=== PATIENT | female | born 1935 | race Caucasian/White ===

== ENCOUNTER 2019-07-13 13:29 | Inpatient (IN) | payer MEDICARE ==
--- NOTE | 2019-07-13 15:57 | HP ---
PRIMARY CARE PHYSICIAN: Ishan Carlton MD REASON FOR ADMISSION: Transferred from [facility] for sepsis, pneumonia, and urinary tract infection. HISTORY OF PRESENT ILLNESS: An 84-year-old female who has underlying history of hypertension and COPD, who was initially evaluated at [facility]. The patient reports that for last week or two, she was gradually feeling weakness. The patient also noticed that at home her pulse was rapid and blood pressure was low. She was becoming more and more weak and that is why she decided to go to emergency room for evaluation. The patient does have right-sided lower chest and upper abdominal discomfort, which is pleuritic in nature. The patient denies any cough. She denies any shortness of breath. She does not have any urinary tract infection symptoms, though urinalysis at [facility] consistent with UTI. At [facility], the patient's oxygen saturation was low and she was requiring oxygen to maintain normal saturation. Initially, she was tachycardic as well as she was having high-grade fever with T-maximum 102. At [facility], the patient was treated with aspirin, Tylenol, Zosyn, Levaquin and some IV fluid. Her chest x-ray showed right lower lobe infiltration. Her routine blood test showed leukocytosis with left shift with bandemia and her creatinine was also elevated and her troponin was also elevated. The patient is being admitted to telemetry floor as she has responded to treatment, and now she is normotensive and her pulse is under control. The patient is well oriented. Lately, the patient was becoming more and more weak. Before that, the patient used to do all routine activities by herself. ALLERGIES: ALBUTEROL, MAKING HER HEART RATE GOES FAST AND SHE DEVELOPS ATRIAL FIBRILLATION; LISINOPRIL. PAST MEDICAL HISTORY: Paroxysmal atrial fibrillation, hypertension, COPD. PAST SURGICAL HISTORY: Appendicectomy, tubal ligation. PAST PSYCHIATRIC HISTORY: Reviewed and negative. FAMILY HISTORY: No strong family history of premature coronary artery disease, stroke, or cancer. CURRENT HOME MEDICATIONS: 1. Bisoprolol with hydrochlorothiazide 1 tablet p.o. daily. 2. Hydrochlorothiazide 25 mg p.o. daily. EMERGENCY ROOM COURSE: The patient received aspirin 4 tablets, Tylenol 1 g, Zosyn 4.5 g, Levaquin 750 mg, and IV fluid. REVIEW OF SYSTEMS: CONSTITUTIONAL: Negative for weight loss or gain, ability to conduct usual activities. SKIN: Negative for rash, itching. EYES: Negative for double vision, pain. ENT/MOUTH: Negative for nose bleeding, neck stiffness, pain, tenderness. CARDIOVASCULAR: Negative for palpitations, dyspnea on exertion, orthopnea. RESPIRATORY: Negative for shortness of breath, wheezing, cough, hemoptysis, fever or night sweats. GASTROINTESTINAL: Negative for poor appetite, abdominal pain, heartburn, nausea , vomiting, constipation, or diarrhea. GENITOURINARY: Negative for urgency, frequency, dysuria, nocturia. MUSCULOSKELETAL: Negative for pain, swelling. NEUROLOGIC/PSYCHIATRIC: Negative for anxiety, depression. ALLERGY/IMMUNOLOGIC: Negative for skin rash, bleeding tendency. Please see my HPI for pertinent positives and negative. All other review of systems reviewed and negative except as mentioned in HPI. SOCIAL HISTORY: No smoking, no alcohol or drug abuse PHYSICAL EXAMINATION: VITAL SIGNS: Currently, blood pressure 129/52, pulse 100, respiratory rate 22, temperature 99.1, saturation 94% on room air, weight 82.3 kg. GENERAL: The patient is currently alert, awake, appears weak. No obvious acute distress. HEENT: Head; normocephalic, atraumatic. Eyes; pupils round, reactive to light. Extraocular muscle intact. ENT, oropharynx within normal limits. Moist mucous membranes. No oral lesion. No pharyngeal erythema. No exudate. NECK: Supple. No JVD. No thyromegaly. No carotid bruit. No jugular venous distention. LUNGS: Right lower lobe rales noted. No wheezing. No rhonchi. No accessory muscles of respiration in use. CARDIAC: S1 and S2 regular. No murmur. No gallop. No rub. ABDOMEN: Obesity present. Bowel sounds present. Nontender. Nondistended. No organomegaly. No mass. No suprapubic tenderness. BACK: Unremarkable. No CVA tenderness. EXTREMITIES: Upper extremities, passive movement of all joints are normal. Lower extremities, no edema. Good distal pulsation. SKIN: No skin rash. HEMATOLOGICAL SYSTEM: No lymphadenopathy. NEUROLOGIC: Nonfocal examination. SIGNIFICANT LABORATORY DATA: CBC; WBC 28.3, hemoglobin 14.2, platelet 275 with bandemia. BMP; sodium 136, potassium 3.9, chloride 93, anion gap 17, BUN 25, creatinine 1.79, glucose 117, calcium 9.4. Lactic acid 2.2. LFT; AST 15, ALT 8 , alkaline phosphatase 84, albumin 3.6. Lipase 12. BNP 357 to 35.8. CK-MB 1.1, troponin 0.048. Urinalysis consistent with leukocyte esterase negative, but nitrite positive and bacteria 4+. Chest x-ray based on my review consistent with right lower lobe infiltration. EKG is showing normal sinus rhythm without any acute ischemic changes. ASSESSMENT AND PLAN: 1. Sepsis with acute organ dysfunction with associated acute hypoxic respiratory failure and acute on chronic kidney failure. Source of infection is pneumonia as well as urinary tract infection. The patient is given appropriate IV fluid and appropriate antibiotic therapy at other emergency room. The patient will require admission in the hospital on telemetry floor. We will continue with broad- spectrum antibiotic therapy. We will give her gentle IV fluid and watch for any fluid overload. 2. Acute on chronic kidney failure, baseline chronic kidney disease stage 3. We will continue with normal saline at 70 mL per hour for 1 L and we will repeat BMP tomorrow. We will avoid nephrotoxin agent. Most likely related with sepsis. 3. Right lower lobe community-acquired pneumonia. The patient will be given Zosyn and levofloxacin to cover typical/atypical bacteria as well as anaerobes. We will continue Mucinex 600 mg twice daily. 4. Urinary tract infection. Nitrite positive, but leukocyte esterase negative. We will follow up on urine culture results. The patient is already on broad- spectrum antibiotic therapy with Zosyn and Levaquin. 5. Chronic obstructive pulmonary disease without any exacerbation. This patient is not tolerating albuterol because of heart racing and that is why we will use Pulmicort nebulization twice daily p.r.n. basis. 6. Hypertension, currently low blood pressure and that is why we will hold on antihypertensive medication. 7. Elevated troponin. We will do serial cardiac enzyme x3 to rule out acute coronary syndrome. This is demand ischemia from sepsis. 8. Elevated BNP, likely diastolic heart failure. We will obtain echocardiography during this admission. 9. Obesity with body mass index 35 to 40. Dietary education given. Weight loss education given. 10. Physical deconditioning. The patient will need Physical Therapy and Occupational Therapy while in the hospital. 11. Deep venous thrombosis prophylaxis, heparin 5000 units subcu twice daily. 12. Gastrointestinal prophylaxis, Pepcid 20 mg p.o. b.i.d. CODE STATUS: The patient is DNR. Discussed with the patient and family member at bedside, and the patient expressed her wish to be a DNR. Job ID: [id number] MTDD
[2019-07-13] MEDS ORDERED: Metoclopramide HCl 10 MG/2 ML VIAL IVP PRN (17:22)
[2019-07-13] MEDS ORDERED: Cepastat Lozenges 1 LOZ PO PRN (17:22)
[2019-07-13] MEDS ORDERED: Senokot S 8.6-50 MG TAB PO PRN (17:22)
[2019-07-13] MEDS ORDERED: Bisacodyl 10 MG SUPP PR PRN (17:22)
[2019-07-13] MEDS ORDERED: Diabetic Tussin 200 MG/10 ML UDCUP PO PRN (17:22)
[2019-07-13] MEDS ORDERED: Loratadine 10 MG TAB PO PRN (17:22)
[2019-07-13] MEDS ORDERED: Artificial Tears 18 DROP/0.9 ML EA EYE PRN (17:22)
[2019-07-13] MEDS ORDERED: Zolpidem Tartrate 5 MG TAB PO PRN (17:22)
[2019-07-13] MEDS ORDERED: Sodium Chloride 0.65% Nasal 44 ML BOT EA NARE PRN (17:22)
[2019-07-13] MEDS ORDERED: Calcium Carbonate 500 MG ChewTAB PO PRN (17:22)
[2019-07-13] MEDS: Sodium Chloride 0.9% 1,000 ML IV SCH (18:03)
[2019-07-13] MEDS: Piperacillin/Tazobactam 3.375 GM in Sodium Chloride 0.9% 100 ML IVPB SCH ×2 (18:04→23:45)
[2019-07-13 18:35] LABS: Troponin I Less than 0.010 ng/mL (< 0.028)
[2019-07-13] MEDS: Budesonide 0.5 MG/2 ML NEB INH SCH (18:38)
[2019-07-13] MEDS: guaiFENesin ER 600 MG TAB PO SCH (20:50)
[2019-07-13] MEDS: Heparin 5,000 UNITS/ML VIAL SC SCH (20:53)
[2019-07-13] MEDS ORDERED: Famotidine 20 MG TAB PO SCH (21:00)
[2019-07-14] MEDS: Piperacillin/Tazobactam 3.375 GM in Sodium Chloride 0.9% 100 ML IVPB SCH ×3 (05:01→18:17)
[2019-07-14 05:34] LABS: #Lymphocytes 1.5 thou/uL (1.20-3.40); #Neutrophils 15.8 thou/uL (1.40-6.50); %Basophils 0.1 % (0.0-1.0); %Eosinophils 0.2 % (0.0-10.0); %Monocytes 5.2 % (0.0-10.0); %Neutrophils 86.5 % (42.0-75.0); Hemoglobin 11.9 g/dL (12.0-16.0); Mean Corpuscular HGB CONC 32.3 g/dL (32.0-36.0); Mean Corpuscular Hemoglobin 28.8 pg (27.0-31.0); Mean Corpuscular Volume 89.3 fL (78.0-98.0); Mean Platelet Volume 7.5 fL (7.4-10.4); Platelet Count 213 thou/uL (130-400); RBC Distribution Width 12.3 % (11.5-14.5); Red Blood Cell (RBC) Count 4.14 mill/uL (4.20-5.40); White Blood Cell (WBC) Count 18.3 thou/uL (4.8-10.8)
[2019-07-14 06:01] LABS: ALT (SGPT) 7 U/L (8-55); AST (SGOT) 17 U/L (5-34); Albumin 2.9 g/dL (3.4-4.8); Alkaline Phosphatase 72 U/L (40-110); Anion Gap 12 mmol/L (10-20); BUN (Urea Nitrogen) 27 mg/dL (9.8-20.1); Bilirubin, Total 0.5 mg/dL (0.2-1.2); Calc. Creatinine Clearance 35 mL/min (70-130); Calcium 8.1 mg/dL (7.8-10.44); Carbon Dioxide 27 mmol/L (23-31); Chloride 101 mmol/L (98-107); Estimated GFR-MDRD 32; Globulin 3.1 g/dL (2.4-3.5); Glucose 134 mg/dL (83-110); Potassium 3.1 mmol/L (3.5-5.1); Sodium 137 mmol/L (136-145)
[2019-07-14] MEDS ORDERED: Potassium Chloride 20 MEQ TAB PO SCH (09:00)
[2019-07-14] MEDS: Heparin 5,000 UNITS/ML VIAL SC SCH ×3 (09:56→21:01)
[2019-07-14] MEDS: Saccharomyces boulardii 250 MG CAP PO SCH (09:56)
[2019-07-14] MEDS: Aspirin Chewable 81 MG TAB PO SCH (09:56)
[2019-07-14] MEDS: Famotidine 20 MG TAB PO SCH (09:56)
[2019-07-14] MEDS: guaiFENesin ER 600 MG TAB PO SCH ×2 (09:56→21:01)
[2019-07-14] MEDS: Sodium Chloride 0.9% 1,000 ML IV SCH (09:57)
[2019-07-14] MEDS: Budesonide 0.5 MG/2 ML NEB INH SCH ×2 (10:27→18:55)
--- NOTE | 2019-07-14 12:16 | PDOC.HOSPP ---
- Subjective Encounter Date: 07/14/19 Encounter Time: 07:30 Subjective: Patient seen and examined. No new complaints. No overnight events - Objective Vital Signs & Weight: Vital Signs (12 hours) Temp Pulse Resp BP Pulse Ox 07/14/19 11:56 97.5 F L 103 H 16 139/60 92 L 07/14/19 10:27 93 16 07/14/19 08:17 98.1 F 98 16 139/63 98 07/14/19 03:00 98.6 F 91 16 121/59 L 92 L Weight Weight 178 lb 3.2 oz I&O: 07/13/19 07/14/19 07/15/19 06:59 06:59 06:59 Intake Total 1364 Balance 1364 Result Diagrams: 07/14/19 04:20 07/14/19 04:20 EKG Reviewed by me: Yes Hospitalist ROS - Review of Systems Constitutional: denies: fever, chills, sweats, weakness, malaise, other Eyes: denies: pain, vision change, conjunctivae inflammation, eyelid inflammation, redness, other ENT: denies: ear pain, ear discharge, nose pain, nose discharge, nose congestion , mouth pain, mouth swelling, throat pain, throat swelling, other Respiratory: denies: cough, dry, shortness of breath, hemoptysis, SOB with excertion, pleuritic pain, sputum, wheezing, other Cardiovascular: denies: chest pain, palpitations, orthopnea, paroxysmal noc. dyspnea, edema, light headedness, other Gastrointestinal: denies: nausea, vomiting, abdominal pain, diarrhea, constipation, melena, hematochezia, other Genitourinary: denies: dysuria, frequency, incontinence, hematuria, retention, other Musculoskeletal: denies: neck pain, shoulder pain, arm pain, back pain, hand pain, leg pain, foot pain, other Skin: denies: rash, lesions, annie, bruising, other - Medication Medications: Active Medications Generic Name Dose Route Start Last Admin Trade Name Freq PRN Reason Stop Dose Admin Aspirin 81 mg 07/14/19 09:00 07/14/19 09:56 Aspirin Chewable PO 81 mg DAILY SAMANTHA Administration Budesonide 0.5 mg 07/13/19 18:30 07/14/19 10:27 Pulmicort Neb Solution INH 0.5 mg BID-RT SAMANTHA Administration Famotidine 20 mg 07/14/19 09:00 07/14/19 09:56 Pepcid PO 20 mg DAILY SAMANTHA Administration Guaifenesin 600 mg 07/13/19 21:00 07/14/19 09:56 Mucinex PO 600 mg Q12HR SAMANTHA Administration Heparin Sodium (Porcine) 5,000 units 07/13/19 21:00 07/14/19 09:56 Heparin SC Not Given TID SAMANTHA Piperacillin Sod/Tazobactam 100 mls @ 200 mls/hr 07/13/19 18:00 07/14/19 05: 01 Sod 3.375 gm/ Sodium Chloride IVPB 100 mls Q6HR SAMANTHA Administration Saccharomyces Boulardii 250 mg 07/14/19 09:00 07/14/19 09:56 Florastor PO 250 mg DAILY SAMANTHA Administration - Exam General Appearance: NAD, awake alert Eye: PERRL, anicteric sclera ENT: normocephalic atraumatic, no oropharyngeal lesions Neck: supple, symmetric, no JVD, no thyromegaly Heart: RRR, no murmur, no gallops, no rubs Respiratory: CTAB, no wheezes, no rales, no ronchi Gastrointestinal: soft, non-tender, non-distended, normal bowel sounds Extremities: no cyanosis, no clubbing Skin: normal turgor, no lesions Neurological: cranial nerve grossly intact, no focal deficits Musculoskeletal: normal tone, normal strength Psychiatric: normal affect, normal behavior Hosp A/P (1) Acute worsening of stage 3 chronic kidney disease Code(s): N18.3 - CHRONIC KIDNEY DISEASE, STAGE 3 (MODERATE) Status: Acute (2) Pneumonia Code(s): J18.9 - PNEUMONIA, UNSPECIFIED ORGANISM Status: Acute (3) Sepsis Code(s): A41.9 - SEPSIS, UNSPECIFIED ORGANISM Status: Acute Qualifiers: Sepsis acute organ dysfunction status: with acute organ dysfunction Severe sepsis acute organ dysfunction type: acute renal failure Severe sepsis shock status: without septic shock (4) UTI (urinary tract infection) Status: Acute Qualifiers: Urinary tract infection type: acute cystitis (5) PAF (paroxysmal atrial fibrillation) Code(s): I48.0 - PAROXYSMAL ATRIAL FIBRILLATION Status: Chronic (6) COPD (chronic obstructive pulmonary disease) Status: Chronic (7) Hypertension Code(s): I10 - ESSENTIAL (PRIMARY) HYPERTENSION Status: Chronic (8) Hypokalemia Code(s): E87.6 - HYPOKALEMIA Status: Acute - Plan old records reviewed/req, continue antibiotics, respiratory therapy 07/14/19 continue zosyn and levaquin follow on culture result medication reviewed as above symptomatic treatment continue PT pt has improvement replace potassium repeat labs tomorrow echo result pending DC IVF
[2019-07-14] MEDS ORDERED: FLU VACC TS2019-20(65YR UP)/PF 180 MCG/0.5 ML SYRINGE IM ONE (21:00)
[2019-07-14] MEDS ORDERED: Prevnar 13-Val Conj/PF 0.5 ML SYRINGE IM ONE (21:00)
[2019-07-15] MEDS: Piperacillin/Tazobactam 3.375 GM in Sodium Chloride 0.9% 100 ML IVPB SCH (00:04)
[2019-07-15 02:17] LABS: Magnesium 1.8 mg/dL (1.6-2.6); Potassium 3.3 mmol/L (3.5-5.1)
[2019-07-15 02:39] LABS: Troponin I Less than 0.010 ng/mL (< 0.028)
[2019-07-15] MEDS ORDERED: Morphine 2 MG/ML SYRINGE SLOW IVP SCH (04:00)
[2019-07-15] MEDS ORDERED: Piperacillin/Tazobactam 3.375 GM in Sodium Chloride 0.9% 100 ML IVPB SCH (06:00)
[2019-07-15] MEDS: Budesonide 0.5 MG/2 ML NEB INH SCH ×2 (07:27→20:21)
[2019-07-15] MEDS ORDERED: Potassium Chloride 20 MEQ TAB PO SCH (07:45)
[2019-07-15] MEDS: Aspirin Chewable 81 MG TAB PO SCH (08:20)
[2019-07-15] MEDS: Saccharomyces boulardii 250 MG CAP PO SCH (08:20)
[2019-07-15] MEDS: Famotidine 20 MG TAB PO SCH (08:20)
[2019-07-15] MEDS: Heparin 5,000 UNITS/ML VIAL SC SCH ×3 (08:20→20:41)
[2019-07-15] MEDS: guaiFENesin ER 600 MG TAB PO SCH ×2 (08:21→20:41)
[2019-07-15 09:30] LABS: Troponin I Less than 0.010 ng/mL (< 0.028)
[2019-07-15] MEDS: cefTRIAXone\\ROCEPHIN 1 GM in Sodium Chloride 0.9% 100 ML IVPB SCH (10:06)
[2019-07-15] MEDS: Bisoprolol Fumarate/HCTZ 5 mg/6.25 mg Tablet PO SCH (10:25)
--- NOTE | 2019-07-15 10:54 | PDOC.HOSPP ---
- Subjective Encounter Date: 07/15/19 Encounter Time: 08:00 Subjective: last night she wake with feeling of chest tightness, dyspnea, had PAT and this morning as well. Patient seen and examined. - Objective Vital Signs & Weight: Vital Signs (12 hours) Temp Pulse Resp BP BP Pulse Ox 07/15/19 08:10 97.2 F L 97 17 159/69 H 94 L 07/15/19 07:27 91 18 100 07/15/19 03:20 101 H 20 131/60 92 L 07/14/19 23:31 98.6 F 94 18 165/70 H 94 L Weight Weight 181 lb 14.4 oz I&O: 07/14/19 07/15/19 07/16/19 06:59 06:59 06:59 Intake Total 1364 1760 Output Total 600 Balance 1364 1160 Result Diagrams: 07/14/19 04:20 07/15/19 01:55 EKG Reviewed by me: Yes (PAT) Hospitalist ROS - Review of Systems Constitutional: denies: fever, chills, sweats, weakness, malaise, other Eyes: denies: pain, vision change, conjunctivae inflammation, eyelid inflammation, redness, other ENT: denies: ear pain, ear discharge, nose pain, nose discharge, nose congestion , mouth pain, mouth swelling, throat pain, throat swelling, other Respiratory: denies: cough, dry, shortness of breath, hemoptysis, SOB with excertion, pleuritic pain, sputum, wheezing, other Cardiovascular: denies: chest pain, palpitations, orthopnea, paroxysmal noc. dyspnea, edema, light headedness, other Gastrointestinal: denies: nausea, vomiting, abdominal pain, diarrhea, constipation, melena, hematochezia, other Genitourinary: denies: dysuria, frequency, incontinence, hematuria, retention, other Musculoskeletal: denies: neck pain, shoulder pain, arm pain, back pain, hand pain, leg pain, foot pain, other Skin: denies: rash, lesions, annie, bruising, other - Medication Medications: Active Medications Generic Name Dose Route Start Last Admin Trade Name Freq PRN Reason Stop Dose Admin Aspirin 81 mg 07/14/19 09:00 07/15/19 08:20 Aspirin Chewable PO 81 mg DAILY SAMANTHA Administration Bisoprolol Fumarate/HCTZ 1 tab 07/15/19 09:00 07/15/19 10:25 Ziac 5-6.25 PO 1 tab DAILY SAMANTHA Administration Budesonide 0.5 mg 07/13/19 18:30 07/15/19 07:27 Pulmicort Neb Solution INH 0.5 mg BID-RT SAMANTHA Administration Famotidine 20 mg 07/14/19 09:00 07/15/19 08:20 Pepcid PO 20 mg DAILY SAMANTHA Administration Guaifenesin 600 mg 07/13/19 21:00 07/15/19 08:21 Mucinex PO Not Given Q12HR SAMANTHA Heparin Sodium (Porcine) 5,000 units 07/13/19 21:00 07/15/19 08:20 Heparin SC Not Given TID SAMANTHA Levofloxacin 750 mg/ Device 150 mls @ 100 mls/hr 07/15/19 09:00 07/15/19 10: 05 IVPB 150 mls Q2D SAMANTHA Administration Ceftriaxone Sodium 1 gm/ 100 mls @ 200 mls/hr 07/15/19 09:00 07/15/19 10:06 Sodium Chloride IVPB 100 mls Q24HR SAMANTHA Administration Saccharomyces Boulardii 250 mg 07/14/19 09:00 07/15/19 08:20 Florastor PO 250 mg DAILY SAMANTHA Administration Sodium Chloride 10 ml 07/15/19 09:00 07/15/19 10:26 Flush - Normal Saline IVF 10 ml Q12HR SAMANTHA Administration - Exam General Appearance: NAD, awake alert Eye: PERRL, anicteric sclera ENT: normocephalic atraumatic, no oropharyngeal lesions Neck: supple, symmetric, no JVD, no thyromegaly Heart: RRR, no murmur, no gallops, no rubs, normal peripheral pulses Respiratory: CTAB, no wheezes, no rales, no ronchi Gastrointestinal: soft, non-tender, non-distended, normal bowel sounds Extremities: no cyanosis, no clubbing, no edema Skin: normal turgor, no lesions, no rashes Neurological: cranial nerve grossly intact, no focal deficits Musculoskeletal: normal tone, normal strength Psychiatric: normal affect, normal behavior Hosp A/P (1) Acute worsening of stage 3 chronic kidney disease Code(s): N18.3 - CHRONIC KIDNEY DISEASE, STAGE 3 (MODERATE) Status: Acute (2) Pneumonia Code(s): J18.9 - PNEUMONIA, UNSPECIFIED ORGANISM Status: Acute Qualifiers: Pneumonia type: due to unspecified organism (3) Sepsis Code(s): A41.9 - SEPSIS, UNSPECIFIED ORGANISM Status: Resolved Qualifiers: Sepsis acute organ dysfunction status: with acute organ dysfunction Severe sepsis acute organ dysfunction type: acute renal failure Severe sepsis shock status: without septic shock (4) UTI (urinary tract infection) Status: Acute Qualifiers: Urinary tract infection type: acute cystitis (5) PAF (paroxysmal atrial fibrillation) Code(s): I48.0 - PAROXYSMAL ATRIAL FIBRILLATION Status: Chronic (6) COPD (chronic obstructive pulmonary disease) Status: Chronic (7) Hypertension Code(s): I10 - ESSENTIAL (PRIMARY) HYPERTENSION Status: Chronic (8) Hypokalemia Code(s): E87.6 - HYPOKALEMIA Status: Acute (9) PAT (paroxysmal atrial tachycardia) Status: Acute - Plan old records reviewed/req, plan discussed w/ family, continue antibiotics 07/14/19 continue zosyn and levaquin follow on culture result medication reviewed as above symptomatic treatment continue PT pt has improvement replace potassium repeat labs tomorrow echo result pending DC IVF 07/15 regarding last night episode of pt chest pain and dyspnea and PAT, will consult cardiology will replace potassium will repeat labs tomorrow with mag, bmp, cbc echo is unremarkable based on culture result, will change zosyn to rocephin today, on discharge only levaquin
--- NOTE | 2019-07-15 15:42 | EKG ---
Test Reason : Blood Pressure : / mmHG Vent. Rate : 103 BPM Atrial Rate : 103 BPM P-R Int : 156 ms QRS Dur : 076 ms QT Int : 362 ms P-R-T Axes : 081 068 046 degrees QTc Int : 474 ms Sinus tachycardia with Possible Premature atrial complexes with Abberant conduction and Premature bao tricular complexes or Fusion complexes Otherwise normal ECG Confirmed by BECCA LLOYD ([id number]) on 07/15/2019 3:41:32 PM Referred By: ANTONIA Confirmed By:BECCA LLOYD
[2019-07-15] MEDS: hydrALAZINE 20 MG/ML VIAL SLOW IVP PRN (17:09)
--- NOTE | 2019-07-15 18:13 | CON ---
DATE OF CONSULTATION: REASON FOR CONSULTATION: PAT. HISTORY OF PRESENT ILLNESS: Ms. Hooks is an 84-year-old woman, who recently presented with pneumonia. She has had intermittent fevers and chills. She did have an episode of PAT, diagnosed. She states she did feel it. She has these intermittent episodes while at home. She did have an echo with Doppler performed over the weekend with LVEF of 60% to 65%. She does have a history of tobacco abuse with COPD. PAST MEDICAL HISTORY: Hypertension, COPD, paroxysmal atrial fibrillation, appendectomy, and BTL. HOME MEDICATIONS: Bisoprolol/hydrochlorothiazide. SOCIAL HISTORY: No current tobacco or alcohol use. Remote tobacco history. REVIEW OF SYSTEMS: A 10-point review of systems is reviewed and as above, otherwise negative. PHYSICAL EXAMINATION: GENERAL: Patient is a pleasant woman who is in no acute distress. The patient appears their stated age. VITAL SIGNS: Blood pressure 197/84, pulse 78, temperature 99. NEUROLOGIC: The patient is alert and oriented x3 with no focal neurologic deficits. HEENT: Sclerae without icterus. Mouth has moist mucous membranes with normal pallor. NECK: No JVD. Carotid upstroke brisk. No bruits bilaterally. LUNGS: Clear to auscultation with unlabored respirations. BACK: No scoliosis or kyphosis. CARDIAC: Regular rate and rhythm with normal S1 and S2. No S3 or S4 noted. No significant rubs, murmurs, thrills, or gallops noted throughout the precordium. PMI is not displaced. There is no parasternal heave. ABDOMEN: Soft, nontender, nondistended. No peritoneal signs present. No hepatosplenomegaly. No abnormal striae. EXTREMITIES: 2+ femoral and 2+ dorsalis pedis pulses. No cyanosis, clubbing, or edema. SKIN: No gross abnormalities. PERTINENT LABORATORY DATA: Hemoglobin 11.9. Creatinine 1.56. IMPRESSION: 1. Paroxysmal atrial tachycardia. 2. Chronic obstructive pulmonary disease. 3. Recent pneumonia. 4. Diastolic dysfunction. RECOMMENDATIONS: At this point, the patient does have one episode of palpitations per week. She is currently on bisoprolol. We will add low-dose Cardizem. Would also consider adding digoxin. Given that she only has one episode every week to every other week, would treat conservatively. Otherwise, I have no further recommendations. Job ID: [id number]
[2019-07-16 05:56] LABS: #Basophils 0.1 thou/uL (0.0-0.2); #Eosinphils 0.2 thou/uL (0.0-0.7); #Lymphocytes 1.6 thou/uL (1.20-3.40); #Monocytes 0.8 thou/uL (0.11-0.59); #Neutrophils 6.5 thou/uL (1.40-6.50); %Basophils 0.6 % (0.0-1.0); %Eosinophils 2.2 % (0.0-10.0); %Lymphocytes 17.6 % (21.0-51.0); %Monocytes 8.4 % (0.0-10.0); %Neutrophils 71.2 % (42.0-75.0); Hemoglobin 11.2 g/dL (12.0-16.0); Mean Corpuscular HGB CONC 30.8 g/dL (32.0-36.0); Mean Corpuscular Hemoglobin 27.5 pg (27.0-31.0); Mean Corpuscular Volume 89.4 fL (78.0-98.0); Mean Platelet Volume 6.9 fL (7.4-10.4); Platelet Count 239 thou/uL (130-400); RBC Distribution Width 12.3 % (11.5-14.5); Red Blood Cell (RBC) Count 4.08 mill/uL (4.20-5.40); White Blood Cell (WBC) Count 9.2 thou/uL (4.8-10.8)
[2019-07-16 06:19] LABS: Anion Gap 11 mmol/L (10-20); BUN (Urea Nitrogen) 18 mg/dL (9.8-20.1); Calc. Creatinine Clearance 47 mL/min (70-130); Calcium 8.7 mg/dL (7.8-10.44); Carbon Dioxide 31 mmol/L (23-31); Chloride 104 mmol/L (98-107); Estimated GFR-MDRD 43; Glucose 87 mg/dL (83-110); Magnesium 1.9 mg/dL (1.6-2.6); Potassium 3.8 mmol/L (3.5-5.1); Sodium 142 mmol/L (136-145)
[2019-07-16] MEDS: Budesonide 0.5 MG/2 ML NEB INH SCH ×2 (06:34→18:33)
[2019-07-16] MEDS: Ipratropium Bromide 2.5 ml Neb NEB PRN (06:35)
[2019-07-16] MEDS: hydrALAZINE 20 MG/ML VIAL SLOW IVP PRN (07:01)
[2019-07-16] MEDS: Famotidine 20 MG TAB PO SCH (08:46)
[2019-07-16] MEDS: Saccharomyces boulardii 250 MG CAP PO SCH (08:47)
[2019-07-16] MEDS: Bisoprolol Fumarate/HCTZ 5 mg/6.25 mg Tablet PO SCH (08:47)
[2019-07-16] MEDS: guaiFENesin ER 600 MG TAB PO SCH ×2 (08:47→20:15)
[2019-07-16] MEDS: Aspirin Chewable 81 MG TAB PO SCH (08:47)
[2019-07-16] MEDS: Heparin 5,000 UNITS/ML VIAL SC SCH ×3 (08:48→20:15)
[2019-07-16] MEDS: cefTRIAXone\\ROCEPHIN 1 GM in Sodium Chloride 0.9% 100 ML IVPB SCH (09:46)
--- NOTE | 2019-07-16 10:01 | PDOC.HOSPP ---
- Subjective Encounter Date: 07/16/19 Encounter Time: 07:45 Subjective: Patient seen and examined. No new complaints. No overnight events pt was anxious today as her blood pressure was high and she had similar feeling as she had previous night - Objective Vital Signs & Weight: Vital Signs (12 hours) Temp Pulse Resp BP BP Pulse Ox 07/16/19 08:49 95 17 150/67 H 07/16/19 07:06 95 07/16/19 07:00 98.1 F 86 16 186/75 H 95 07/16/19 06:35 90 16 92 L 07/16/19 06:34 90 16 92 L 07/16/19 04:00 99.0 F 89 18 174/75 H 92 L Weight Admit Weight 180 lb 1.6 oz Weight 183 lb 1.6 oz I&O: 07/15/19 07/16/19 07/17/19 06:59 06:59 06:59 Intake Total 1760 Output Total 600 Balance 1160 Result Diagrams: 07/16/19 05:42 07/16/19 05:42 EKG Reviewed by me: Yes Hospitalist ROS - Review of Systems Eyes: denies: pain, vision change, conjunctivae inflammation, eyelid inflammation, redness, other ENT: denies: ear pain, ear discharge, nose pain, nose discharge, nose congestion , mouth pain, mouth swelling, throat pain, throat swelling, other Respiratory: denies: cough, dry, shortness of breath, hemoptysis, SOB with excertion, pleuritic pain, sputum, wheezing, other Cardiovascular: denies: chest pain, palpitations, orthopnea, paroxysmal noc. dyspnea, edema, light headedness, other Gastrointestinal: denies: nausea, vomiting, abdominal pain, diarrhea, constipation, melena, hematochezia, other Genitourinary: denies: dysuria, frequency, incontinence, hematuria, retention, other Musculoskeletal: denies: neck pain, shoulder pain, arm pain, back pain, hand pain, leg pain, foot pain, other Skin: denies: rash, lesions, annie, bruising, other - Medication Medications: Active Medications Generic Name Dose Route Start Last Admin Trade Name Freq PRN Reason Stop Dose Admin Aspirin 81 mg 07/14/19 09:00 07/16/19 08:47 Aspirin Chewable PO 81 mg DAILY SAMANTHA Administration Bisoprolol Fumarate/HCTZ 1 tab 07/15/19 09:00 07/16/19 08:47 [place] 5-6.25 PO 1 tab DAILY SAMANTHA Administration Budesonide 0.5 mg 07/13/19 18:30 07/16/19 06:34 Pulmicort Neb Solution INH 0.5 mg BID-RT SAMANTHA Administration Diltiazem HCl 180 mg 07/16/19 09:00 07/16/19 08:46 Cardizem Cd PO 180 mg DAILY SAMANTHA Administration Famotidine 20 mg 07/14/19 09:00 07/16/19 08:46 Pepcid PO 20 mg DAILY SAMANTHA Administration Guaifenesin 600 mg 07/13/19 21:00 07/16/19 08:47 Mucinex PO 600 mg Q12HR SAMANTHA Administration Heparin Sodium (Porcine) 5,000 units 07/13/19 21:00 07/16/19 08:48 Heparin SC Not Given TID SAMANTHA Hydralazine HCl 10 mg 07/13/19 17:22 07/16/19 07:01 Apresoline SLOW IVP 10 mg Q4H PRN Administration SBP > 180 and HR < 70 Ipratropium [place] 2.5 ml 07/13/19 17:22 07/16/19 06:35 Atrovent NEB 2.5 ml [id number] PRN Administration SOB &/or Wheezing Saccharomyces Boulardii 250 mg 07/14/19 09:00 07/16/19 08:47 Florastor PO 250 mg DAILY SAMANTHA Administration Sodium Chloride 10 ml 07/15/19 09:00 07/16/19 08:49 Flush - Normal Saline IVF 10 ml Q12HR SAMANTHA Administration Hosp A/P (1) Acute worsening of stage 3 chronic kidney disease Code(s): N18.3 - CHRONIC KIDNEY DISEASE, STAGE 3 (MODERATE) Status: Resolved (2) Pneumonia Code(s): J18.9 - PNEUMONIA, UNSPECIFIED ORGANISM Status: Acute Qualifiers: Pneumonia type: due to unspecified organism (3) Sepsis Code(s): A41.9 - SEPSIS, UNSPECIFIED ORGANISM Status: Resolved Qualifiers: Sepsis acute organ dysfunction status: with acute organ dysfunction Severe sepsis acute organ dysfunction type: acute renal failure Severe sepsis shock status: without septic shock (4) UTI (urinary tract infection) Status: Acute Qualifiers: Urinary tract infection type: acute cystitis (5) PAF (paroxysmal atrial fibrillation) Code(s): I48.0 - PAROXYSMAL ATRIAL FIBRILLATION Status: Chronic (6) COPD (chronic obstructive pulmonary disease) Status: Chronic (7) Hypertension Code(s): I10 - ESSENTIAL (PRIMARY) HYPERTENSION Status: Chronic (8) Hypokalemia Code(s): E87.6 - HYPOKALEMIA Status: Resolved (9) PAT (paroxysmal atrial tachycardia) Status: Acute - Plan old records reviewed/req, continue antibiotics 07/14/19 continue zosyn and levaquin follow on culture result medication reviewed as above symptomatic treatment continue PT pt has improvement replace potassium repeat labs tomorrow echo result pending DC IVF 07/15 regarding last night episode of pt chest pain and dyspnea and PAT, will consult cardiology will replace potassium will repeat labs tomorrow with mag, bmp, cbc echo is unremarkable based on culture result, will change zosyn to rocephin today, on discharge only levaquin 07/16/19 cardiology added keysha CHAUDHARY, her rate controlled will monitor her BP and adjust medication medication reviewed as above, symptomatic treatment will change antibiotic to levaquin 500 mg daily expecting discharge tomorrow
--- NOTE | 2019-07-16 17:13 | PRG ---
DATE OF SERVICE: 07/16/2019 SUBJECTIVE: Ms. Hooks is doing well. No current complaints. No recurrent episodes of tachycardia. OBJECTIVE: GENERAL: Patient is a pleasant woman, who is in no acute distress. The patient appears their stated age. VITAL SIGNS: Blood pressure 157/69, pulse 76, and temperature 98.6. NEUROLOGIC: The patient is alert and oriented x3 with no focal neurologic deficits. HEENT: Sclerae without icterus. Mouth has moist mucous membranes with normal pallor. NECK: No JVD. Carotid upstroke brisk. No bruits bilaterally. LUNGS: Clear to auscultation with unlabored respirations. BACK: No scoliosis or kyphosis. CARDIAC: Regular rate and rhythm with normal S1 and S2. No S3 or S4 noted. No significant rubs, murmurs, thrills, or gallops noted throughout the precordium. PMI is not displaced. There is no parasternal heave. ABDOMEN: Soft, nontender, nondistended. No peritoneal signs present. No hepatosplenomegaly. No abnormal striae. EXTREMITIES: 2+ femoral and 2+ dorsalis pedis pulses. No cyanosis, clubbing, or edema. SKIN: No gross abnormalities. DIAGNOSTIC DATA: Telemetry monitoring did show a short burst of PAC. IMPRESSION: 1. Premature atrial contractions. 2. Pneumonia. RECOMMENDATIONS: From a CV standpoint, continue calcium-channel blockade. She currently did not feel recent tachycardia. I would recommend low-dose calcium-channel jono at 120 mg one p.o. q.a.m. Otherwise, I will have no further recommendations. Plan is to follow up with me in 1 to 2 weeks. Please re-consult if needed. Job ID: [id number]
[2019-07-17] MEDS: hydrALAZINE 20 MG/ML VIAL SLOW IVP PRN (05:48)
[2019-07-17] MEDS: Budesonide 0.5 MG/2 ML NEB INH SCH ×2 (06:52→19:09)
[2019-07-17] MEDS: Aspirin Chewable 81 MG TAB PO SCH (08:06)
[2019-07-17] MEDS: Heparin 5,000 UNITS/ML VIAL SC SCH ×3 (08:06→21:38)
[2019-07-17] MEDS: Saccharomyces boulardii 250 MG CAP PO SCH (08:06)
[2019-07-17] MEDS: Famotidine 20 MG TAB PO SCH (08:06)
[2019-07-17] MEDS: Acetaminophen 325 MG TAB PO PRN (08:06)
[2019-07-17] MEDS: guaiFENesin ER 600 MG TAB PO SCH ×2 (08:06→21:37)
[2019-07-17] MEDS: Bisoprolol Fumarate/HCTZ 5 mg/6.25 mg Tablet PO SCH (08:07)
--- NOTE | 2019-07-17 09:40 | PDOC.HOSPP ---
- Subjective Encounter Date: 07/17/19 Encounter Time: 09:34 Subjective: anxious about BP swings, sob despite O2 - Objective Vital Signs & Weight: Vital Signs (12 hours) Temp Pulse Resp BP Pulse Ox 07/17/19 06:52 87 16 97 07/17/19 05:48 82 07/17/19 04:00 98.5 F 82 18 183/77 H 92 L 07/17/19 03:57 94 L Weight Admit Weight 180 lb 1.6 oz Weight 181 lb Result Diagrams: 07/16/19 05:42 07/16/19 05:42 Hospitalist ROS - Medication Medications: Active Medications Generic Name Dose Route Start Last Admin Trade Name Freq PRN Reason Stop Dose Admin Acetaminophen 650 mg 07/13/19 17:22 07/17/19 08:06 Tylenol PO 650 mg Q4H PRN Administration Headache/Fever/Mild Pain (1-3) Aspirin 81 mg 07/14/19 09:00 07/17/19 08:06 Aspirin Chewable PO 81 mg DAILY SAMANTHA Administration Bisoprolol Fumarate/HCTZ 1 tab 07/15/19 09:00 07/17/19 08:07 Ziac 5-6.25 PO 1 tab DAILY SAMANTHA Administration Budesonide 0.5 mg 07/13/19 18:30 07/17/19 06:52 Pulmicort Neb Solution INH 0.5 mg BID-RT SAMANTHA Administration Diltiazem HCl 180 mg 07/16/19 09:00 07/17/19 08:06 Cardizem Cd PO 180 mg DAILY SAMANTHA Administration Famotidine 20 mg 07/14/19 09:00 07/17/19 08:06 Pepcid PO 20 mg DAILY SAMANTHA Administration Guaifenesin 600 mg 07/13/19 21:00 07/17/19 08:06 Mucinex PO 600 mg Q12HR SAMANTHA Administration Heparin Sodium (Porcine) 5,000 units 07/13/19 21:00 07/17/19 08:06 Heparin SC Not Given TID SAMANTHA Hydralazine HCl 10 mg 07/13/19 17:22 07/17/19 05:48 Apresoline SLOW IVP 10 mg Q4H PRN Administration SBP > 180 and HR < 70 Levofloxacin 500 mg/ Device 100 mls @ 100 mls/hr 07/16/19 10:00 07/16/19 11: 15 IVPB 100 mls Q24HR SAMANTHA Administration Ipratropium [place] 2.5 ml 07/13/19 17:22 07/16/19 06:35 Atrovent NEB 2.5 ml [id number] PRN Administration SOB &/or Wheezing Saccharomyces Boulardii 250 mg 07/14/19 09:00 07/17/19 08:06 Florastor PO 250 mg DAILY SAMANTHA Administration Sodium Chloride 10 ml 07/15/19 09:00 07/17/19 08:07 Flush - Normal Saline IVF 10 ml Q12HR SAMANTHA Administration - Exam General Appearance: awake alert Neck: no JVD Heart: RRR, no murmur Respiratory: CTAB Gastrointestinal: soft, normal bowel sounds Extremities: no edema Hosp A/P (1) Pneumonia Code(s): J18.9 - PNEUMONIA, UNSPECIFIED ORGANISM Status: Acute Qualifiers: Pneumonia type: due to Pneumococcus Laterality: right Lung location: lower lobe of lung Qualified Code(s): J13 - Pneumonia due to Streptococcus pneumoniae (2) CKD (chronic kidney disease) stage 3, GFR 30-59 ml/min Code(s): N18.3 - CHRONIC KIDNEY DISEASE, STAGE 3 (MODERATE) Status: Chronic (3) UTI (urinary tract infection) Status: Acute Qualifiers: Urinary tract infection type: acute cystitis (4) COPD (chronic obstructive pulmonary disease) Status: Chronic Qualifiers: Emphysema type: unspecified (5) Hypertension Code(s): I10 - ESSENTIAL (PRIMARY) HYPERTENSION Status: Chronic Qualifiers: Hypertension type: essential hypertension Qualified Code(s): I10 - Essential (primary) hypertension (6) PAT (paroxysmal atrial tachycardia) Status: Chronic - Plan CXR hydralazine 25 tid levaquin po, DC iv
[2019-07-17] MEDS: HYDROcodone/Acetaminophen 5/325 mg Tablet PO PRN (15:08)
[2019-07-17] MEDS: hydrALAZINE 25 MG TAB PO SCH ×2 (15:08→21:37)
--- NOTE | 2019-07-17 15:37 | RAD ---
EXAM: Chest PA and lateral: HISTORY: Pneumonia follow-up COMPARISON: 07/13/2019 FINDINGS: Heart: Normal cardiac silhouette Aorta: Atherosclerosis Pulmonary vessels: Normal Costophrenic angles: Costophrenic angles are clear. Lungs: Worsening bibasilar opacification. Stable hyperinflation. Pneumothorax: No pneumothorax Osseous structures: No osseous abnormalities IMPRESSION: Worsening bibasilar opacification.
--- NOTE | 2019-07-17 17:17 | PDOC.EVN ---
Event Note - Event Note Event Note: cxr- adverse bilat basilar opacificetion. echo diastolic dysfcn. poss acute diastolic HF. trial diuresis, order BNP. loathe to get CT of chest with CKD 3.
[2019-07-17] MEDS ORDERED: Furosemide 40 MG/4 ML VIAL SLOW IVP SCH (17:30)
[2019-07-18] MEDS: hydrALAZINE 20 MG/ML VIAL SLOW IVP PRN (00:31)
[2019-07-18] MEDS: HYDROcodone/Acetaminophen 5/325 mg Tablet PO PRN (01:28)
[2019-07-18] MEDS: Budesonide 0.5 MG/2 ML NEB INH SCH ×2 (07:17→18:24)
[2019-07-18] MEDS: Saccharomyces boulardii 250 MG CAP PO SCH (08:56)
[2019-07-18] MEDS: Aspirin Chewable 81 MG TAB PO SCH (08:56)
[2019-07-18] MEDS: Famotidine 20 MG TAB PO SCH (08:56)
[2019-07-18] MEDS: guaiFENesin ER 600 MG TAB PO SCH ×2 (08:57→20:47)
[2019-07-18] MEDS: Bisoprolol Fumarate/HCTZ 5 mg/6.25 mg Tablet PO SCH (08:57)
[2019-07-18] MEDS: hydrALAZINE 25 MG TAB PO SCH ×3 (08:57→20:47)
[2019-07-18] MEDS: Heparin 5,000 UNITS/ML VIAL SC SCH ×3 (08:58→20:46)
[2019-07-18] MEDS ORDERED: hydrALAZINE 25 MG TAB PO SCH (13:00)
--- NOTE | 2019-07-18 13:09 | PDOC.HOSPP ---
- Subjective Encounter Date: 07/18/19 Encounter Time: 07:20 Subjective: Pt seen for followup re: acute diastolic CHF. Feels slightly better. SOBOE. - Objective Vital Signs & Weight: Vital Signs (12 hours) Temp Pulse Resp BP BP Pulse Ox 07/18/19 11:32 97.8 F 77 22 H 160/72 H 91 L 07/18/19 08:57 84 144/65 H 07/18/19 08:00 98.1 F 84 18 144/65 H 89 L 07/18/19 03:13 98.3 F 82 18 144/67 H 92 L Weight Admit Weight 180 lb 1.6 oz Weight 178 lb 6.4 oz I&O: 07/17/19 07/18/19 07/19/19 06:59 06:59 06:59 Intake Total 980 480 Balance 980 480 Result Diagrams: 07/16/19 05:42 07/16/19 05:42 Additional Labs: Labs and MARs reviewed by me EKG Reviewed by me: Yes (Tele: NSR) Hospitalist ROS - Review of Systems Respiratory: reports: cough, dry, SOB with excertion, other. denies: shortness of breath, hemoptysis, pleuritic pain, sputum, wheezing Cardiovascular: denies: chest pain, palpitations, orthopnea, paroxysmal noc. dyspnea, edema, light headedness - Medication Medications: Active Medications Generic Name Dose Route Start Last Admin Trade Name Freq PRN Reason Stop Dose Admin Acetaminophen 650 mg 07/13/19 17:22 07/17/19 08:06 Tylenol PO 650 mg Q4H PRN Administration Headache/Fever/Mild Pain (1-3) Hydrocodone Bitart/Acetaminophen 1 tab 07/13/19 17:22 07/18/19 01:28 [place] 5/325 PO 1 tab Q4H PRN Administration Moderate Pain (4-6) Aspirin 81 mg 07/14/19 09:00 07/18/19 08:56 Aspirin Chewable PO 81 mg DAILY SAMANTHA Administration Bisoprolol Fumarate/HCTZ 1 tab 07/15/19 09:00 07/18/19 08:57 [place]iac 5-6.25 PO 1 tab DAILY SAMANTHA Administration Budesonide 0.5 mg 07/13/19 18:30 07/18/19 07:17 Pulmicort Neb Solution INH 0.5 mg BID-RT SAMANTHA Administration Diltiazem HCl 180 mg 07/16/19 09:00 07/18/19 08:56 Cardizem Cd PO 180 mg DAILY SAMANTHA Administration Famotidine 20 mg 07/14/19 09:00 07/18/19 08:56 Pepcid PO 20 mg DAILY SAMANTHA Administration Guaifenesin 600 mg 07/13/19 21:00 07/18/19 08:57 Mucinex PO 600 mg Q12HR SAMANTHA Administration Heparin Sodium (Porcine) 5,000 units 07/13/19 21:00 07/18/19 08:58 Heparin SC Not Given TID SAMANTHA Hydralazine HCl 10 mg 07/13/19 17:22 07/18/19 00:31 Apresoline SLOW IVP 10 mg Q4H PRN Administration SBP > 180 and HR < 70 Ipratropium [place] 2.5 ml 07/13/19 17:22 07/16/19 06:35 Atrovent NEB 2.5 ml [id number] PRN Administration SOB &/or Wheezing Levofloxacin 500 mg 07/18/19 06:00 07/18/19 05:46 Levaquin PO 500 mg 0600 SAMANTHA Administration Saccharomyces Boulardii 250 mg 07/14/19 09:00 07/18/19 08:56 Florastor PO 250 mg DAILY SAMANTHA Administration Sodium Chloride 10 ml 07/15/19 09:00 07/18/19 08:58 Flush - Normal Saline IVF 10 ml Q12HR SAMANTHA Administration - Exam General Appearance: NAD Eye: anicteric sclera ENT: moist mucosa Neck: supple Heart: RRR Respiratory - other findings: Billy crackes Gastrointestinal: soft Musculoskeletal: no muscle wasting Psychiatric: normal affect, normal behavior Hosp A/P (1) Acute diastolic CHF (congestive heart failure), NYHA class 3 Code(s): I50.31 - ACUTE DIASTOLIC (CONGESTIVE) HEART FAILURE Status: Acute (2) Pneumonia Code(s): J18.9 - PNEUMONIA, UNSPECIFIED ORGANISM Status: Acute Qualifiers: Pneumonia type: due to Pneumococcus Laterality: right Lung location: lower lobe of lung Qualified Code(s): J13 - Pneumonia due to Streptococcus pneumoniae (3) Hypertension Code(s): I10 - ESSENTIAL (PRIMARY) HYPERTENSION Status: Chronic Qualifiers: Hypertension type: essential hypertension Qualified Code(s): I10 - Essential (primary) hypertension (4) Acute worsening of stage 3 chronic kidney disease Code(s): N18.3 - CHRONIC KIDNEY DISEASE, STAGE 3 (MODERATE) Status: Resolved - Plan continue antibiotics, respiratory therapy, out of bed/ambulate Start scheduled furosemide. Continue evofloxacin. Increase hydralazine to 50 mg PO TID. Check AM labs.
[2019-07-18] MEDS: Furosemide 20 MG/2 ML VIAL SLOW IVP SCH (13:55)
[2019-07-18 14:01] VITALS: BMI 29.7
[2019-07-18] MEDS ORDERED: Hydrochlorothiazide 25 MG TAB PO SCH (15:45)
[2019-07-19] MEDS: Acetaminophen 325 MG TAB PO PRN ×2 (00:42→20:38)
[2019-07-19 04:41] LABS: #Eosinphils 0.2 thou/uL (0.0-0.7); #Lymphocytes 2.1 thou/uL (1.20-3.40); #Monocytes 1.2 thou/uL (0.11-0.59); #Neutrophils 8.8 thou/uL (1.40-6.50); %Basophils 0.3 % (0.0-1.0); %Eosinophils 1.4 % (0.0-10.0); %Lymphocytes 17.2 % (21.0-51.0); %Monocytes 9.5 % (0.0-10.0); %Neutrophils 71.7 % (42.0-75.0); Hemoglobin 12.5 g/dL (12.0-16.0); Mean Corpuscular HGB CONC 31.1 g/dL (32.0-36.0); Mean Corpuscular Volume 90.2 fL (78.0-98.0); Mean Platelet Volume 6.9 fL (7.4-10.4); Platelet Count 339 thou/uL (130-400); RBC Distribution Width 12.6 % (11.5-14.5); Red Blood Cell (RBC) Count 4.45 mill/uL (4.20-5.40); White Blood Cell (WBC) Count 12.2 thou/uL (4.8-10.8)
[2019-07-19 04:59] LABS: Anion Gap 13 mmol/L (10-20); BUN (Urea Nitrogen) 20 mg/dL (9.8-20.1); Calc. Creatinine Clearance 37 mL/min (70-130); Calcium 8.9 mg/dL (7.8-10.44); Carbon Dioxide 35 mmol/L (23-31); Chloride 92 mmol/L (98-107); Estimated GFR-MDRD 34; Glucose 93 mg/dL (83-110); Potassium 3.6 mmol/L (3.5-5.1); Sodium 136 mmol/L (136-145)
[2019-07-19] MEDS: Furosemide 20 MG/2 ML VIAL SLOW IVP SCH ×2 (06:22→15:21)
[2019-07-19] MEDS: Budesonide 0.5 MG/2 ML NEB INH SCH ×2 (06:27→18:35)
[2019-07-19] MEDS: guaiFENesin ER 600 MG TAB PO SCH ×2 (08:18→20:39)
[2019-07-19] MEDS: Saccharomyces boulardii 250 MG CAP PO SCH (08:19)
[2019-07-19] MEDS: Aspirin Chewable 81 MG TAB PO SCH (08:19)
[2019-07-19] MEDS: Famotidine 20 MG TAB PO SCH (08:19)
[2019-07-19] MEDS: Heparin 5,000 UNITS/ML VIAL SC SCH ×3 (08:20→20:35)
[2019-07-19] MEDS: hydrALAZINE 25 MG TAB PO SCH ×3 (08:20→20:39)
[2019-07-19] MEDS ORDERED: Hydrochlorothiazide 25 MG TAB PO SCH (09:00)
[2019-07-19] MEDS: Bisoprolol Fumarate/HCTZ 5 mg/6.25 mg Tablet PO SCH (10:21)
--- NOTE | 2019-07-19 12:25 | PDOC.HOSPP ---
- Subjective Encounter Date: 07/19/19 Encounter Time: 07:50 Subjective: No specific complaint.. - Objective Vital Signs & Weight: Vital Signs (12 hours) Temp Pulse Resp BP BP BP Pulse Ox 07/19/19 08:20 80 115/60 07/19/19 08:00 98.4 F 81 18 115/60 98 07/19/19 06:27 80 16 07/19/19 04:20 98.3 F 80 18 133/63 97 07/19/19 00:34 93 175/73 H 94 L Weight Admit Weight 180 lb 1.6 oz Weight 176 lb 9.6 oz I&O: 07/18/19 07/19/19 07/20/19 06:59 06:59 06:59 Intake Total 980 1440 480 Output Total 200 Balance 980 1240 480 Result Diagrams: 07/19/19 03:51 07/19/19 03:51 Hospitalist ROS - Medication Medications: Active Medications Generic Name Dose Route Start Last Admin Trade Name Freq PRN Reason Stop Dose Admin Acetaminophen 650 mg 07/13/19 17:22 07/19/19 00:42 Tylenol PO 650 mg Q4H PRN Administration Headache/Fever/Mild Pain (1-3) Hydrocodone Bitart/Acetaminophen 1 tab 07/13/19 17:22 07/18/19 01:28 [place] 5/325 PO 1 tab Q4H PRN Administration Moderate Pain (4-6) Aspirin 81 mg 07/14/19 09:00 07/19/19 08:19 Aspirin Chewable PO 81 mg DAILY SAMANTHA Administration Bisoprolol Fumarate/HCTZ 1 tab 07/15/19 09:00 07/19/19 10:21 [place] 5-6.25 PO 1 tab DAILY SAMANTHA Administration Budesonide 0.5 mg 07/13/19 18:30 07/19/19 06:27 Pulmicort Neb Solution INH 0.5 mg BID-RT SAMANTHA Administration Diltiazem HCl 180 mg 07/16/19 09:00 07/19/19 08:19 Cardizem Cd PO 180 mg DAILY SAMANTHA Administration Famotidine 20 mg 07/14/19 09:00 07/19/19 08:19 Pepcid PO 20 mg DAILY SAMANTHA Administration Furosemide 20 mg 07/18/19 14:00 07/19/19 06:22 Lasix SLOW IVP 20 mg 0600,1400 SAMANTHA Administration Guaifenesin 600 mg 07/13/19 21:00 07/19/19 08:18 Mucinex PO 600 mg Q12HR SAMANTHA Administration Heparin Sodium (Porcine) 5,000 units 07/13/19 21:00 07/19/19 08:20 Heparin SC Not Given TID SAMANTHA Hydralazine HCl 10 mg 07/13/19 17:22 07/18/19 00:31 Apresoline SLOW IVP 10 mg Q4H PRN Administration SBP > 180 and HR < 70 Hydralazine HCl 50 mg 07/18/19 15:00 07/19/19 08:20 Apresoline PO Not Given TID SAMANTHA Ipratropium [place] 2.5 ml 07/13/19 17:22 07/16/19 06:35 Atrovent NEB 2.5 ml [id number] PRN Administration SOB &/or Wheezing Levofloxacin 500 mg 07/18/19 06:00 07/19/19 06:22 Levaquin PO 500 mg 0600 SAMANTHA Administration Saccharomyces Boulardii 250 mg 07/14/19 09:00 07/19/19 08:19 Florastor PO 250 mg DAILY SAMANTHA Administration Sodium Chloride 10 ml 07/15/19 09:00 07/19/19 08:33 Flush - Normal Saline IVF 10 ml Q12HR SAMANTHA Administration - Exam General Appearance: NAD Neck: supple Heart: RRR Respiratory: CTAB Gastrointestinal: soft Extremities: no edema Neurological: no weakness Psychiatric: normal affect Hosp A/P (1) Acute diastolic CHF (congestive heart failure), NYHA class 3 Code(s): I50.31 - ACUTE DIASTOLIC (CONGESTIVE) HEART FAILURE Status: Acute Plan: Continue diuretics.. (2) Pneumonia Code(s): J18.9 - PNEUMONIA, UNSPECIFIED ORGANISM Status: Acute Qualifiers: Pneumonia type: due to Pneumococcus Laterality: right Lung location: lower lobe of lung Qualified Code(s): J13 - Pneumonia due to Streptococcus pneumoniae Plan: On antibiotics.. (3) CKD (chronic kidney disease) stage 3, GFR 30-59 ml/min Code(s): N18.3 - CHRONIC KIDNEY DISEASE, STAGE 3 (MODERATE) Status: Chronic Plan: Mild increase in serum creatinine from diuretics.. (4) Hypertension Code(s): I10 - ESSENTIAL (PRIMARY) HYPERTENSION Status: Chronic Qualifiers: Hypertension type: essential hypertension Qualified Code(s): I10 - Essential (primary) hypertension Plan: Adjust BP meds.. - Plan Continue diuretics, antibiotics.. Adjust bp meds..
[2019-07-19] MEDS: HYDROcodone/Acetaminophen 5/325 mg Tablet PO PRN (23:20)
[2019-07-20] MEDS: Furosemide 20 MG/2 ML VIAL SLOW IVP SCH ×2 (05:20→13:57)
[2019-07-20] MEDS ORDERED: Fluconazole 100 MG TAB PO SCH (06:00)
[2019-07-20] MEDS: Ipratropium Bromide 2.5 ml Neb NEB PRN (07:31)
[2019-07-20] MEDS: Budesonide 0.5 MG/2 ML NEB INH SCH (07:32)
[2019-07-20] MEDS ORDERED: Hydrochlorothiazide 25 MG TAB PO SCH (09:00)
[2019-07-20] MEDS: Famotidine 20 MG TAB PO SCH (09:36)
[2019-07-20] MEDS: Aspirin Chewable 81 MG TAB PO SCH (09:36)
[2019-07-20] MEDS: hydrALAZINE 25 MG TAB PO SCH ×2 (09:37→13:57)
[2019-07-20] MEDS: Bisoprolol Fumarate/HCTZ 5 mg/6.25 mg Tablet PO SCH (09:38)
[2019-07-20] MEDS: Saccharomyces boulardii 250 MG CAP PO SCH (09:38)
[2019-07-20] MEDS: guaiFENesin ER 600 MG TAB PO SCH (09:38)
[2019-07-20] MEDS: Heparin 5,000 UNITS/ML VIAL SC SCH ×2 (09:38→14:08)
[2019-07-20 12:05] VITALS: BP 155/65; TEMP 98.4
--- NOTE | 2019-07-20 13:28 | DIS ---
DATE OF ADMISSION: 07/13/2019 DATE OF DISCHARGE: 07/20/2019 ADMITTING DIAGNOSES: 1. Sepsis secondary to pneumonia. 2. [id number]-[id number] kidney disease. 3. Urinary tract infection. 4. Chronic obstructive pulmonary disease. 5. Hypertension. 6. Morbid obesity. 7. Elevated serum troponin. 8. Physical deconditioning. DISCHARGE DIAGNOSES: 1. Sepsis secondary to pneumonia. 2. Kmrtl-[id number] kidney disease. 3. Urinary tract infection. 4. Chronic obstructive pulmonary disease. 5. Hypertension. 6. Morbid obesity. 7. Elevated serum troponin. 8. Physical deconditioning. CONSULTANTS: Dr. Sesay. PROCEDURES: Echocardiogram, EKG, and chest x-ray. COURSE OF HOSPITALIZATION: Uncomplicated. Responded well to management. The patient is clinically stable at this time being discharged home. DISCHARGE MEDICATION: Please see discharge medication reconciliation sheet. FOLLOWUP: The patient is to follow up with her primary care physician. PHYSICAL EXAMINATION: GENERAL: Today, the patient is alert and oriented, in no distress. VITAL SIGNS: Her latest vital signs show a temperature of 98.7, pulse rate 80, respiratory rate 16, and blood pressure 141/63. HEAD AND NECK: Normal. She has a regular S1 and S2. LUNGS: Clear. ABDOMEN: Benign. EXTREMITIES: Limbs show no edema. NEUROLOGIC: She moves all extremities. The patient is to follow up with her primary care physician as mentioned earlier. TIME SPENT: Discharge time, 31 minutes. Job ID: [id number]
[2019-07-21] MEDS ORDERED: Fluconazole 100 MG TAB PO SCH (09:00)
== END 2019-07-20 14:59 | disposition home or self-care (01) | DRG 871 ==
LOC: ERS 13:29 → 2NO 14:21
PROVIDERS: ADMIT Family Medicine; ATTEND Family Medicine
DX: A41.9 Sepsis, unspecified organism (principal); J18.9 Pneumonia, unspecified organism; J96.01 Acute respiratory failure with hypoxia; I50.31 Acute diastolic (congestive) heart failure; J44.0 Chronic obstructive pulmonary disease with (acute) lower respiratory infection; N17.9 Acute kidney failure, unspecified; N39.0 Urinary tract infection, site not specified; I13.0 Hypertensive heart and chronic kidney disease with heart failure and stage 1 through stage 4 chronic kidney disease, or unspecified chronic kidney disease; R79.9 Abnormal finding of blood chemistry, unspecified; I12.9 Hypertensive chronic kidney disease with stage 1 through stage 4 chronic kidney disease, or unspecified chronic kidney disease; N18.3 Chronic kidney disease, stage 3 (moderate); E66.01 Morbid (severe) obesity due to excess calories; Z68.29 Body mass index [BMI] 29.0-29.9, adult; R65.20 Severe sepsis without septic shock; I48.0 Paroxysmal atrial fibrillation; E87.6 Hypokalemia; I49.1 Atrial premature depolarization
CPT/HCPCS: 36415; 71046; 80048; 80053; 83735; 83880; 84132; 84484; 85025; 87086; 93005; 93010; 93306; 93798; 94640; 99291; J0360; J0696; J1940; J1956; J2270; J2543; J3490; J7626

== ENCOUNTER 2023-04-28 11:13 | Inpatient (IN) | payer MEDICARE ==
[2023-04-28 12:07] LABS: Bacteria/HPF None Seen HPF (None Seen); Bilirubin Negative (Negative); Blood, Urine Trace (Negative); CAUTI Indications for Culture Alt mental st,lethar; Clarity Clear (Clear); Glucose, Urine (Dipstick) Normal (Negative); Ketone, Urine Negative (Negative); Leukocyte Negative Leu/uL (Negative); Nitrite Negative (Negative); Protein, Urine (Dipstick) 30 mg/dL (Neg-Trace); RBC/HPF 0-3 HPF (0-3); Specific Gravity, Urine 1.024 (1.002-1.036); Squamous Epithelial 0-3 HPF (0-3); Urobilinogen Normal mg/dL (Less than 2); WBC/HPF 0-3 HPF (0-3)
[2023-04-28 12:10] LABS: Urine Culture Reflex No No
[2023-04-28 12:22] LABS: ALT (SGPT) 11 U/L (8-55); AST (SGOT) 17 U/L (5-34); Albumin 3.8 g/dL (3.4-4.8); Alkaline Phosphatase 82 U/L (40-110); Anion Gap 13 mmol/L (10-20); BUN (Urea Nitrogen) 28 mg/dL (9.8-20.1); Bilirubin, Total 0.4 mg/dL (0.2-1.2); Calc. Creatinine Clearance 0 mL/min (70-130); Calcium 9.4 mg/dL (7.8-10.44); Carbon Dioxide 31 mmol/L (23-31); Chloride 100 mmol/L (98-107); Estimated GFR 32; Globulin 3.4 g/dL (2.4-3.5); Glucose 85 mg/dL (83-110); Lipase 33 U/L (8-78); Potassium 4.9 mmol/L (3.5-5.1); Protein, Total 7.2 g/dL (5.8-8.1); Sodium 139 mmol/L (136-145)
[2023-04-28 12:25] LABS: Troponin I Less than 0.010 ng/mL (< 0.028)
[2023-04-28 12:38] LABS: #Basophils 0.1 thou/uL (0.0-0.2); #Eosinphils 0.1 thou/uL (0.0-0.7); #Monocytes 0.7 thou/uL (0.11-0.59); #Neutrophils 4.6 thou/uL (1.40-6.50); %Basophils 0.7 % (0.0-1.0); %Eosinophils 1.8 % (0.0-10.0); %Lymphocytes 25.5 % (21.0-51.0); %Monocytes 9.5 % (0.0-10.0); %Neutrophils 62.2 % (42.0-75.0); Hematocrit 43.4 % (36.0-47.0); Hemoglobin 13.4 g/dL (12.0-16.0); Mean Corpuscular HGB CONC 30.9 g/dL (32.0-36.0); Mean Corpuscular Volume 90.8 fl (78.0-98.0); Mean Platelet Volume 9.7 fL (7.4-10.4); Platelet Count 218 10x3/uL (130-400); RBC Distribution Width 13.2 % (11.5-14.5); Red Blood Cell (RBC) Count 4.78 mill/uL (4.20-5.40); White Blood Cell (WBC) Count 7.4 10x3/uL (4.8-10.8)
[2023-04-28 12:46] LABS: SARS-CoV-2 NAA Rapid Test Not Detected (NotDetected)
[2023-04-28] MEDS ORDERED: Nitroglycerin 2% Ointment 1 INCH/1 GM Packet ONE (12:58)
[2023-04-28] MEDS ORDERED: Aspirin Chewable 81 MG TAB ONE (12:58)
[2023-04-28] MEDS ORDERED: Acetaminophen 325 MG TAB PO PRN (14:03)
[2023-04-28] MEDS ORDERED: Bisacodyl 5 MG TAB PO PRN (14:03)
[2023-04-28] MEDS ORDERED: Senokot S 8.6-50 MG TAB PO PRN (14:03)
[2023-04-28] MEDS ORDERED: Bisacodyl 10 MG SUPP PR PRN (14:03)
[2023-04-28] MEDS ORDERED: Nitroglycerin 50 MG/250 ML BOT 250 ML IVPB SCH (14:15)
[2023-04-28] MEDS ORDERED: Iopamidol-370 76% 500 ML MDV (1 ML CHARGE) ONE (14:17)
[2023-04-28 15:07] LABS: Troponin I Less than 0.010 ng/mL (< 0.028)
[2023-04-28] MEDS ORDERED: Amlodipine 10 MG TAB PO SCH (15:15)
[2023-04-28] MEDS ORDERED: Hydrochlorothiazide 25 MG TAB PO SCH (15:15)
[2023-04-28 15:25] VITALS: BMI 29.1
[2023-04-28] MEDS: Heparin 5,000 UNITS/ML VIAL SC SCH ×2 (15:26→20:28)
[2023-04-28] MEDS ORDERED: cefTRIAXone (ROCEPHIN) 2 GM VIAL ONE (15:30)
[2023-04-28] MEDS ORDERED: Amlodipine 5 MG TAB ONE (15:30)
[2023-04-28] MEDS ORDERED: Azithromycin 250 MG TAB ONE (15:32)
[2023-04-28] MEDS: Azithromycin 250 MG TAB PO SCH (15:39)
[2023-04-28] MEDS: cefTRIAXone\\ROCEPHIN 2 GM in Sodium Chloride 0.9% 100 ML IVPB SCH (17:01)
[2023-04-28 17:13] LABS: Creatinine, Urine 245.66 mg/dL (47-110)
[2023-04-28] MEDS ORDERED: Lorazepam 2 MG/ML VIAL SLOW IVP SCH (17:15)
[2023-04-28 18:14] LABS: Troponin I Less than 0.010 ng/mL (< 0.028)
[2023-04-28] MEDS ORDERED: Calcium Carbonate 500 MG ChewTAB PO PRN (21:04)
[2023-04-29 04:42] LABS: #Basophils 0.1 thou/uL (0.0-0.2); #Eosinphils 0.2 thou/uL (0.0-0.7); #Monocytes 0.9 thou/uL (0.11-0.59); #Neutrophils 4.9 thou/uL (1.40-6.50); %Basophils 0.6 % (0.0-1.0); %Eosinophils 2.3 % (0.0-10.0); %Lymphocytes 23.3 % (21.0-51.0); %Neutrophils 62.5 % (42.0-75.0); Hematocrit 39.8 % (36.0-47.0); Hemoglobin 12.1 g/dL (12.0-16.0); Mean Corpuscular HGB CONC 30.4 g/dL (32.0-36.0); Mean Corpuscular Hemoglobin 28.6 pg (27.0-31.0); Mean Platelet Volume 9.4 fL (7.4-10.4); Platelet Count 202 10x3/uL (130-400); RBC Distribution Width 13.2 % (11.5-14.5); Red Blood Cell (RBC) Count 4.23 mill/uL (4.20-5.40); White Blood Cell (WBC) Count 7.8 10x3/uL (4.8-10.8)
[2023-04-29 05:05] LABS: Mean Corpuscular Volume 94.1 fl (78.0-98.0)
[2023-04-29 05:11] LABS: Anion Gap 10 mmol/L (10-20); BUN (Urea Nitrogen) 32 mg/dL (9.8-20.1); Calc. Creatinine Clearance 33 mL/min (70-130); Calcium 8.6 mg/dL (7.8-10.44); Carbon Dioxide 28 mmol/L (23-31); Chloride 102 mmol/L (98-107); Estimated GFR 33; Glucose 98 mg/dL (83-110); Potassium 3.8 mmol/L (3.5-5.1); Sodium 136 mmol/L (136-145)
[2023-04-29] MEDS: Heparin 5,000 UNITS/ML VIAL SC SCH ×3 (08:23→20:10)
[2023-04-29] MEDS: Hydrochlorothiazide 25 MG TAB PO SCH (08:24)
[2023-04-29] MEDS: Famotidine 20 MG TAB PO SCH (08:24)
[2023-04-29] MEDS: Amlodipine 10 MG TAB PO SCH (08:24)
[2023-04-29] MEDS ORDERED: Metoprolol Tartrate 25 MG TAB PO SCH (12:45)
[2023-04-29] MEDS: cefTRIAXone\\ROCEPHIN 2 GM in Sodium Chloride 0.9% 100 ML IVPB SCH (14:33)
[2023-04-29] MEDS: Azithromycin 250 MG TAB PO SCH (14:33)
[2023-04-29] MEDS ORDERED: hydrALAZINE 20 MG/ML VIAL SLOW IVP SCH (16:15)
[2023-04-29 17:54] LABS: Troponin I Less than 0.010 ng/mL (< 0.028)
[2023-04-29] MEDS: Metoprolol Tartrate 25 MG TAB PO SCH (20:09)
[2023-04-29 20:34] LABS: Troponin I Less than 0.010 ng/mL (< 0.028)
[2023-04-30 00:46] LABS: Troponin I Less than 0.010 ng/mL (< 0.028)
[2023-04-30 04:20] LABS: #Eosinphils 0.2 thou/uL (0.0-0.7); #Monocytes 0.6 thou/uL (0.11-0.59); #Neutrophils 4.3 thou/uL (1.40-6.50); %Basophils 0.4 % (0.0-1.0); %Eosinophils 2.6 % (0.0-10.0); %Monocytes 9.1 % (0.0-10.0); %Neutrophils 62.6 % (42.0-75.0); Hematocrit 41.6 % (36.0-47.0); Mean Corpuscular HGB CONC 31.3 g/dL (32.0-36.0); Mean Corpuscular Hemoglobin 28.3 pg (27.0-31.0); Mean Platelet Volume 9.9 fL (7.4-10.4); Platelet Count 234 10x3/uL (130-400); RBC Distribution Width 13.2 % (11.5-14.5); White Blood Cell (WBC) Count 6.9 10x3/uL (4.8-10.8)
[2023-04-30 04:25] LABS: Mean Corpuscular Volume 90.4 fl (78.0-98.0)
[2023-04-30 04:53] LABS: ALT (SGPT) 11 U/L (8-55); AST (SGOT) 17 U/L (5-34); Albumin 3.3 g/dL (3.4-4.8); Alkaline Phosphatase 69 U/L (40-110); Anion Gap 12 mmol/L (10-20); BUN (Urea Nitrogen) 28 mg/dL (9.8-20.1); Bilirubin, Total 0.2 mg/dL (0.2-1.2); Calc. Creatinine Clearance 40 mL/min (70-130); Calcium 8.9 mg/dL (7.8-10.44); Carbon Dioxide 31 mmol/L (23-31); Chloride 100 mmol/L (98-107); Estimated GFR 41; Glucose 91 mg/dL (83-110); Magnesium 1.7 mg/dL (1.6-2.6); Potassium 3.9 mmol/L (3.5-5.1); Protein, Total 6.3 g/dL (5.8-8.1); Sodium 139 mmol/L (136-145)
[2023-04-30] MEDS: Amlodipine 10 MG TAB PO SCH (09:57)
[2023-04-30] MEDS: Hydrochlorothiazide 25 MG TAB PO SCH (09:57)
[2023-04-30] MEDS: Famotidine 20 MG TAB PO SCH (09:57)
[2023-04-30] MEDS: Metoprolol Tartrate 25 MG TAB PO SCH ×2 (09:58→20:08)
[2023-04-30] MEDS: Heparin 5,000 UNITS/ML VIAL SC SCH ×3 (09:58→20:07)
[2023-04-30] MEDS: cefTRIAXone\\ROCEPHIN 2 GM in Sodium Chloride 0.9% 100 ML IVPB SCH (16:31)
[2023-04-30] MEDS: Azithromycin 250 MG TAB PO SCH (16:31)
[2023-05-01 04:20] LABS: #Eosinphils 0.2 thou/uL (0.0-0.7); #Monocytes 0.5 thou/uL (0.11-0.59); #Neutrophils 4.6 thou/uL (1.40-6.50); %Basophils 0.5 % (0.0-1.0); %Eosinophils 2.2 % (0.0-10.0); %Lymphocytes 27.9 % (21.0-51.0); %Monocytes 7.1 % (0.0-10.0); %Neutrophils 62.2 % (42.0-75.0); Hematocrit 42.6 % (36.0-47.0); Hemoglobin 13.2 g/dL (12.0-16.0); Mean Corpuscular Hemoglobin 28.1 pg (27.0-31.0); Mean Corpuscular Volume 90.8 fl (78.0-98.0); Mean Platelet Volume 9.7 fL (7.4-10.4); Platelet Count 256 10x3/uL (130-400); RBC Distribution Width 13.4 % (11.5-14.5); Red Blood Cell (RBC) Count 4.69 mill/uL (4.20-5.40); White Blood Cell (WBC) Count 7.4 10x3/uL (4.8-10.8)
[2023-05-01 04:48] LABS: ALT (SGPT) 9 U/L (8-55); AST (SGOT) 16 U/L (5-34); Albumin 3.3 g/dL (3.4-4.8); Alkaline Phosphatase 71 U/L (40-110); Anion Gap 13 mmol/L (10-20); BUN (Urea Nitrogen) 28 mg/dL (9.8-20.1); Bilirubin, Total 0.2 mg/dL (0.2-1.2); Calc. Creatinine Clearance 39 mL/min (70-130); Calcium 8.9 mg/dL (7.8-10.44); Carbon Dioxide 32 mmol/L (23-31); Chloride 99 mmol/L (98-107); Estimated GFR 39; Globulin 3.1 g/dL (2.4-3.5); Glucose 94 mg/dL (83-110); Magnesium 1.8 mg/dL (1.6-2.6); Protein, Total 6.4 g/dL (5.8-8.1); Sodium 140 mmol/L (136-145)
[2023-05-01] MEDS: Famotidine 20 MG TAB PO SCH (09:00)
[2023-05-01] MEDS: Hydrochlorothiazide 25 MG TAB PO SCH (09:01)
[2023-05-01] MEDS: Heparin 5,000 UNITS/ML VIAL SC SCH (09:01)
[2023-05-01] MEDS: Amlodipine 10 MG TAB PO SCH (09:01)
[2023-05-01] MEDS: Metoprolol Tartrate 25 MG TAB PO SCH (09:01)
[2023-05-01 09:51] VITALS: TEMP 97.9
[2023-05-01 12:17] VITALS: BP 164/73
== END 2023-05-01 16:00 | disposition home or self-care (01) | DRG 194 ==
LOC: ERS 11:13 → ERHOLD 13:21 → OBSVTOIN 14:03 → 2NO 16:35
PROVIDERS: ADMIT Hospitalist; ATTEND Emergency Medicine
DX: J18.9 Pneumonia, unspecified organism (principal); I13.0 Hypertensive heart and chronic kidney disease with heart failure and stage 1 through stage 4 chronic kidney disease, or unspecified chronic kidney disease; R82.1 Myoglobinuria; I50.32 Chronic diastolic (congestive) heart failure; J44.9 Chronic obstructive pulmonary disease, unspecified; I48.0 Paroxysmal atrial fibrillation; R80.9 Proteinuria, unspecified; N18.30 Chronic kidney disease, stage 3 unspecified; Z66 Do not resuscitate; Z90.49 Acquired absence of other specified parts of digestive tract; Z98.51 Tubal ligation status; Z87.891 Personal history of nicotine dependence; Z88.8 Allergy status to other drugs, medicaments and biological substances; Z79.899 Other long term (current) drug therapy; Z20.822 Contact with and (suspected) exposure to COVID-19
CPT/HCPCS: 36415; 71045; 71275; 80048; 80053; 81001; 82550; 82570; 83690; 83735; 83880; 84156; 84443; 84484; 85025; 85379; 87040; 93005; 93010; 93306; 94760; J0360; J0696; J1644; J2060; J3490; Q9967; U0002